=== PATIENT | male | born 1970 | race African-American/Black ===

== ENCOUNTER → 2017-07-08 | Outpatient (CLI) | payer OTHER ==
--- NOTE | 2017-07-08 12:29 | US ---
EXAMINATION TYPE: US venous doppler duplex LE RT DATE OF EXAM: 07/08/2017 12:13 PM COMPARISON: US 2009 CLINICAL HISTORY: M79.661 PAIN IN RT LOWER LIMB,R22.41 SWELLING OF RT LEG. Right lower leg pain, hist ory of DVT SIDE PERFORMED: Right TECHNIQUE: The lower extremity deep venous system is examined utilizing real time linear array sonog matheus with graded compression, doppler sonography and color-flow sonography. VESSELS IMAGED: External Iliac Vein (EIV) Common Femoral Vein Deep Femoral Vein Greater Saphenous Vein * Femoral Vein Popliteal Vein Small Saphenous Vein * Proximal Calf Veins (* superficial vessels) Grayscale, color doppler, spectral doppler imaging performed of the deep veins of the lower extremity . Right Leg: Appears positive for DVT in the anterior proximal calf vein IMPRESSION: Appears positive for DVT in the anterior proximal calf vein
== END | disposition home or self-care (01) ==
LOC: RADUSWWP 11:20
PROVIDERS: ATTEND Internal Medicine
DX: R22.41 Localized swelling, mass and lump, right lower limb (principal); M79.661 Pain in right lower leg; Z86.718 Personal history of other venous thrombosis and embolism